=== PATIENT | male | born 1970 | race Hispanic/Latino ===

== ENCOUNTER 2020-02-06 14:07 | Emergency (ER) | payer SELFPAY ==
--- NOTE | 2020-02-06 14:27 | Emergency Department Report ---
Blank Doc - Documentation Documentation: 49-year-old male that presents with body aches and cough. Tachycardia in triage. This initial assessment/diagnostic orders/clinical plan/treatment(s) is/are subject to change based on patient's health status, clinical progression and re- assessment by fellow clinical providers in the ED. Further treatment and workup at subsequent clinical providers discretion. Patient/guardians urged not to elope from the ED as their condition may be serious if not clinically assessed and managed. Initial orders include: 1- Patient sent to [facility] for further evaluation and treatment 2- cxr
--- NOTE | 2020-02-06 14:55 | XRay Report ---
CHEST 2 VIEWS INDICATION / CLINICAL INFORMATION: Cough and fever x1 week. COMPARISON: None available. FINDINGS: SUPPORT DEVICES: None. HEART / MEDIASTINUM: No significant abnormality. LUNGS / PLEURA: No significant pulmonary or pleural abnormality. No pneumothorax. ADDITIONAL FINDINGS: No significant additional findings. IMPRESSION: 1. No acute findings. Signer Name: Ginna Canseco MD Signed: 02/06/2020 2:51 PM Workstation Name: [id number]
--- NOTE | 2020-02-06 17:28 | Emergency Department Report ---
- General Chief Complaint: Upper Respiratory Infection Stated Complaint: POSS BRONCITIS Time Seen by Provider: 02/06/20 14:25 Source: patient Mode of arrival: Ambulatory Limitations: No Limitations - History of Present Illness Initial Comments: 49-year-old male states that approximately 1 week ago he developed flulike symptoms stayed home for a few days and rest. 2 days ago he developed cough that is keeping him up at night and the left eye swelling with drainage. He denies fever he denies chest pain and shortness of breath -: week(s) (1) Associated Symptoms: denies: fever, chills, myalgias, shortness of breath Treatments Prior to Arrival: none - Related Data Previous Rx's Medication Instructions Recorded Last Taken Type Diphenhydramine HCl [Benadryl 25 mg PO Q6HR #10 tablet 09/02/16 Unknown Rx Allergy TAB] Prednisone [predniSONE 10 mg 10 mg PO .TAPER #1 tab.ds.pk 09/02/16 Unknown Rx (6-Day Pack, 21 Tabs)] Azithromycin [Zithromax Z-MIKA] 0 mg PO DAILY #1 pack 02/06/20 Unknown Rx Polymyxin B Sulf/Trimethoprim 1 drop OP Q4H #10 ml 02/06/20 Unknown Rx [Polytrim Eye Drops] Allergies Allergy/AdvReac Type Severity Reaction Status Date / Time No Known Allergies Allergy Unverified 09/02/16 11:37 ED Review of Systems ROS: Stated complaint: POSS BRONCITIS Other details as noted in HPI Comment: All other systems reviewed and negative Constitutional: no symptoms reported, malaise. denies: chills, fever Eyes: eye discharge (left eye yellow discharge) Respiratory: cough Cardiovascular: denies: chest pain Endocrine: no symptoms reported Skin: denies: rash, lesions ED Past Medical Hx - Past Medical History Previous Medical History?: No - Surgical History Past Surgical History?: No - Social History Smoking Status: Former Smoker Substance Use Type: None - Medications Home Medications: Home Medications Medication Instructions Recorded Confirmed Last Taken Type Diphenhydramine HCl [Benadryl 25 mg PO Q6HR #10 tablet 09/02/16 Unknown Rx Allergy TAB] Prednisone [predniSONE 10 mg 10 mg PO .TAPER #1 tab.ds.pk 09/02/16 Unknown Rx (6-Day Pack, 21 Tabs)] Azithromycin [Zithromax Z-MIKA] 0 mg PO DAILY #1 pack 02/06/20 Unknown Rx Polymyxin B Sulf/Trimethoprim 1 drop OP Q4H #10 ml 02/06/20 Unknown Rx [Polytrim Eye Drops] ED Physical Exam - General Limitations: No Limitations General appearance: alert - Head Head exam: Present: atraumatic - Eye Eye exam: Present: other (left lower eye lid swelling ). Absent: conjunctival injection - ENT ENT exam: Present: normal exam, mucous membranes moist, TM's normal bilaterally - Neck Neck exam: Present: normal inspection, full ROM. Absent: lymphadenopathy - Respiratory Respiratory exam: Present: normal lung sounds bilaterally. Absent: respiratory distress, wheezes, rales, rhonchi - Cardiovascular Cardiovascular Exam: Present: regular rate, normal heart sounds - GI/Abdominal GI/Abdominal exam: Present: soft - Rectal Rectal exam: Absent: deferred - exam: Present: normal inspection - Extremities Exam Extremities exam: Present: normal inspection - Back Exam Back exam: Present: normal inspection - Neurological Exam Neurological exam: Present: alert, oriented X3 - Psychiatric Psychiatric exam: Present: normal affect - Skin Skin exam: Present: warm, dry, intact, normal color ED Course Vital Signs 02/06/20 02/06/20 14:15 14:26 Temperature 98.4 F 98.4 F Pulse Rate 91 H 93 H Respiratory 16 18 Rate Blood Pressure 176/98 Blood Pressure 176/98 [Left] O2 Sat by Pulse 97 97 Oximetry ED Medical Decision Making - Radiology Data Radiology results: report reviewed chest x-ray with no acute findings - Medical Decision Making 49-year-old male status post flulike symptoms 1 week ago he denies fever. He has ongoing cough chest congestion and left lower eyelid swelling and yellow discharge from the left eye. Chest x-ray shows no acute findings. Critical care attestation.: If time is entered above; I have spent that time in minutes in the direct care of this critically ill patient, excluding procedure time. ED Disposition Clinical Impression: URI (upper respiratory infection) Qualifiers: URI type: unspecified URI Qualified Code(s): J06.9 - Acute upper respiratory infection, unspecified Hordeolum externum (stye) Qualifiers: Laterality: left Eyelid: lower Qualified Code(s): H00.015 - Hordeolum externum left lower eyelid Disposition: TO HOME OR SELFCARE Is pt being admited?: No Does the pt Need Aspirin: No Condition: Stable Instructions: Upper Respiratory Infection (ED), Stye (ED) Additional Instructions: Follow-up with your primary care doctor take all medication as prescribed. Prescriptions: Polymyxin B Sulf/Trimethoprim [Polytrim Eye Drops] 1 drop OP Q4H #10 ml Azithromycin [Zithromax Z-MIKA] 0 mg PO DAILY #1 pack Referrals: PRIMARY CAREMD [Primary Care Provider] - 3-5 Days YOVANI EDWARD MD [Staff Physician] - 3-5 Days Time of Disposition: 17:59
[2020-02-06 18:12] VITALS: BP 170/90
== END 2020-02-06 18:11 | disposition home or self-care (01) ==
LOC: ED 14:07
DX: J06.9 Acute upper respiratory infection, unspecified (principal); H00.015 Hordeolum externum left lower eyelid; Z87.891 Personal history of nicotine dependence; Z79.899 Other long term (current) drug therapy
CPT/HCPCS: 71046; 99283